=== PATIENT | male | born 1945 ===

== ENCOUNTER 2017-03-21 16:49 | Emergency (ER) | payer SELFPAY ==
--- NOTE | 2017-03-21 17:41 | UC ---
Throat Pain/Nasal More[place] HPI - HPI Summary HPI Summary: 72 year old male presents with complains of cough and chest congestion. - History of Current Complaint Stated Complaint: RESPIRATORY/SINUS Time Seen by Provider: 03/21/17 17:41 Hx Obtained From: Patient Onset/Duration: Sudden Onset Severity: Moderate Cough: Nonproductive Associated Signs & Symptoms: Positive: Wheezing - Allergies/Home Medications Allergies/Adverse Reactions: Allergies Allergy/AdvReac Type Severity Reaction Status Date / Time Statins Allergy Unknown respiratory Verified 03/21/17 17:44 Clopidogrel [From Plavix] AdvReac taste Verified 03/21/17 17:44 Home Medications: Home Medications Aspirin 75 Mg 1 tab BEDTIME 03/21/17 [History Confirmed 03/21/17] Doxazosin XL (NF) [Cardura XL (NF)] 8 mg PO BEDTIME 03/21/17 [History Confirmed 03/21/17] Fenofibrate 100 mg PO BEDTIME 03/21/17 [History Confirmed 03/21/17] Lansoprazole CAP (NF) [Prevacid CAP (NF)] 15 mg PO BEDTIME 03/21/17 [History Confirmed 03/21/17] PMH/Surg Hx/FS Hx/Imm Hx - Surgical History Surgical History: None - Family History Known Family History: Positive: None - Social History Occupation: Retired Review of Systems Constitutional: Negative Skin: Negative Eyes: Negative ENT: Negative Respiratory: Cough Cardiovascular: Negative Gastrointestinal: Negative Genitourinary: Negative Motor: Negative Neurovascular: Negative Musculoskeletal: Negative Neurological: Negative Psychological: Negative All Other Systems Reviewed And Are Negative: Yes Physical Exam Triage Information Reviewed: Yes Vital Signs Reviewed: Yes Eye Exam: Normal ENT Exam: Normal Dental Exam: Normal Neck exam: Normal Neck: Positive: 1 Respiratory: Positive: Rhonchi, Wheezing Cardiovascular Exam: Normal Abdominal Exam: Normal Musculoskeletal Exam: Normal Neurological Exam: Normal Psychological Exam: Normal Skin Exam: Normal Throat Pain/Nasal Course/Dx - Differential Dx/Diagnosis Provider Diagnoses: cough. bronchitis Discharge - Discharge Plan Condition: Stable Disposition: HOME Prescriptions: Albuterol HFA INHALER* [Ventolin HFA Inhaler*] 1 puff INH Q6H PRN #1 mdi PRN Reason: Wheezing Amoxicillin/Clavulanate TAB* [Augmentin TAB 875*] 875 mg PO BID #20 tab Guaifenesin-Codeine [Cheratussin AC] 1 teasp PO BEDTIME PRN #120 ml MDD 5 ml PRN Reason: Cough predniSONE TAB* [Deltasone TAB*] 40 mg PO DAILY #10 tab Patient Education Materials: Acute Bronchitis (ED) Referrals: No Primary Care Phys,NOPCP [Primary Care Provider] -
[2017-03-21] MEDS ORDERED: predniSONE TAB* 20 MG PO ONE (17:50)
[2017-03-21] MEDS ORDERED: Albuterol/Ipratropium NEB.SOL* Albuterol 2.5 MG/Ipratropium 0.5 MG 3 ML INH ONE (17:50)
--- NOTE | 2017-03-21 18:27 | RAD ---
INDICATION: Cough COMPARISON: None TECHNIQUE: PA and lateral dual-energy views were obtained. FINDINGS: Bones/Soft Tissues: There are no acute bony findings. Cardiomediastinal: The cardiomediastinal silhouette is normal. Lungs: There are no infiltrates. Pleura: There are no pleural effusions. Other: None IMPRESSION: NO ACTIVE DISEASE.
== END 2017-03-21 18:39 | disposition home or self-care (01) ==
LOC: UCCORT 16:49
DX: J40 Bronchitis, not specified as acute or chronic (principal); Z88.8 Allergy status to other drugs, medicaments and biological substances
CPT/HCPCS: 71020; 99202; A9270-GY; G0463; J7512